=== PATIENT | female | born 1980 | race African-American/Black ===

== ENCOUNTER 2017-02-28 22:49 | Emergency (ER) | payer SELFPAY ==
[~2017-02-28 22:49] MED LIST: CYCLOBENZAPRINE5 M1 PO; DEPAKOTE500 MG PO; ERYTHROMYCIN3.5 GM OP; LUNESTA3 MG PO; LYRICA; LYRICA50 MG PO; MACROBID 100 M100 M1 PO; NORCO 5-325 TA1 EACH PO; NORCO 5/325 TAB1 TAB PO; OMEPRAZOLE20 M4 PO; OXYCODONE/APAP PO
[2017-02-28] MEDS ORDERED: CYCLOBENZAPRINE5 M1 PO (23:38)
== END 2017-03-01 00:05 ==
LOC: EDMED 22:49
DX: M25.571 Pain in right ankle and joints of right foot (principal); M54.9 Dorsalgia, unspecified; G89.29 Other chronic pain; J45.909 Unspecified asthma, uncomplicated; F31.9 Bipolar disorder, unspecified; F41.9 Anxiety disorder, unspecified; F17.200 Nicotine dependence, unspecified, uncomplicated
CPT/HCPCS: J1885